=== PATIENT | male | born 1995 | race Caucasian/White ===

== ENCOUNTER 2018-12-10 15:46 | Emergency (ER) | payer OTHER ==
[2018-12-10 15:57] VITALS: BP 122/66
--- NOTE | 2018-12-10 16:05 | ED Physician Documentation ---
PD HPI BACK INJURY - Stated complaint Stated Complaint: BACK PX - History obtained from History obtained from: Patient - History of Present Illness Location: Right, Upper Type of injury: Other (He feels like he tweaked his back working out a few days ago and then it got worse today while lifting a foosball table. It is in the right low thoracic area. Its worse with bending and twisting. It does not radiate. No weakness, numbness, tingling, saddle anesthesia, fevers, or incontinence. He declines pain medication for it. He really wants just to know if he is doing the right thing with gentle stretching and heat.) Review of Systems Constitutional: denies: Fever, Chills Throat: reports: Reviewed and negative Cardiac: reports: Reviewed and negative Respiratory: reports: Dyspnea PD PAST MEDICAL HISTORY - Allergies Allergies/Adverse Reactions: Allergies Allergy/AdvReac Type Severity Reaction Status Date / Time No Known Drug Allergies Allergy Verified 12/10/18 15:57 PD ED PE NORMAL - Vitals Vital signs reviewed: Yes - General General: Alert and oriented X 3, No acute distress - Back Back: No spinal TTP, Other (No midline spinal tenderness but he does have a palpable muscle spasm in the right low thoracic area. He has full range of motion but winces a little bit with twisting to the left.) - Extremities Extremities: Other (The patient has equal and normal Achilles and patellar reflexes bilaterally. Normal sensation in all areas of the legs. Patient denies saddle anesthesia. Normal strength in flexion-extension at the ankles, knees, and flexion of the hips.) Results - Vitals Vitals: Vital Signs - 24 hr 12/10/18 15:54 Temperature 36.4 C L Heart Rate 47 L Respiratory 18 Rate Blood Pressure 122/66 O2 Saturation 99 Oxygen O2 Source Room air Departure - Departure Disposition: 01 Home, Self Care Clinical Impression: Back strain Qualifiers: Encounter type: initial encounter Qualified Code(s): S39.012A - Strain of muscle, fascia and tendon of lower back, initial encounter Condition: Good Record reviewed to determine appropriate education?: Yes Instructions: ED Spasm Back No Trauma Comments: Heat and gentle stretching. Also ibuprofen as needed. Follow-up with your doctor in a week if not better. Return for new or worsening symptoms.
== END 2018-12-10 16:07 | disposition home or self-care (01) ==
LOC: ED 15:46
DX: S29.012A Strain of muscle and tendon of back wall of thorax, initial encounter (principal); X50.0XXA Overexertion from strenuous movement or load, initial encounter; Y93.89 Activity, other specified
CPT/HCPCS: 99282